=== PATIENT | male | born 1980 | race Caucasian/White ===

== ENCOUNTER 2017-03-18 08:49 | Inpatient (IN) | payer OTHER, MEDICAID ==
[2017-03-18] MEDS: DEXAMETHASONE 10 MG/ML 1 ML INJ IM (13:21)
[2017-03-18] MEDS: ALBUTEROL 0.083% (NEB) 2.5 MG/3 ML AMP HHN ×3 (13:24→23:46)
[2017-03-18] MEDS: IPRATROPIUM (NEB) 0.5 MG/2.5 ML AMP HHN (13:25)
[2017-03-18] MEDS: PENICILLIN G BENZ 1.2 MIL UNIT SYG IM (16:07)
[2017-03-18 19:08] LABS: ADD MAN DIFF? NO
[2017-03-18 19:09] LABS: BASOPHILS % 0.4 % (0.0-2.0); HEMATOCRIT 45.8 % (42.0-52.0); HEMOGLOBIN 15.4 g/dl (14.0-18.0); LYMPHOCYTES # 0.8 10^3/ul (0.8-2.9); LYMPHOCYTES % 7.8 % (15.0-51.0); MEAN CORPUSCULAR HEMOGLOBIN 28.4 pg (29.0-33.0); MEAN CORPUSCULAR HGB CONC 33.6 g/dl (32.0-37.0); MEAN CORPUSCULAR VOLUME 84.5 fl (82.0-101.0); MEAN PLATELET VOLUME 10.5 fl (7.4-10.4); MONOCYTE # 0.1 10^3/ul (0.3-0.9); MONOCYTES % 0.5 % (0.0-11.0); NEUTROPHIL # 9.3 10^3/ul (1.6-7.5); PLATELET COUNT 324 10^3/UL (140-415); RED BLOOD COUNT 5.42 10^6/ul (4.70-6.10); RED CELL DISTRIBUTION WIDTH 12.7 % (11.5-14.5)
[2017-03-18 19:09] LABS: WHITE BLOOD COUNT 10.2 10^3/ul (4.8-10.8)
[2017-03-18 19:23] LABS: AADO2 Arterial 59.2 mmHg (7.0-24.0); Allen Test ACCEPTAB; Arterial Base Excess -0.8 mmol/L (-3.0-3); Arterial Blood Gas Oxygen Sat 85.3 mmHG (95.0-98.0); Arterial COHb 0.4 % (0.0-3.0); Arterial Fraction of Oxyhgb 84.7 % (93.0-99.0); Arterial HCO3 22.6 mmol/L (22.0-26.0); Arterial MetHb 0.3 % (0.0-1.5); Arterial Total Hemglobin 16.3 g/dl (12.0-18.0); Arterial pCO2 34.2 mmhg (35-45); MODE ROOM AIR; Site Right Radial
[2017-03-18] MEDS: ALBUTEROL 0.5% (NEB) 2.5 MG/0.5 ML AMP INH (19:31)
[2017-03-18 19:34] LABS: ALANINE AMINOTRANSFERASE 82 IU/L (13-69); ALBUMIN 4.9 g/dl (3.3-4.9); ALBUMIN/GLOBULIN RATIO 1.36; ALKALINE PHOSPHATASE 130 IU/L (42-121); ANION GAP 22 (8-16); ASPARTATE AMINO TRANSFERASE 42 IU/L (15-46); BILIRUBIN,INDIRECT 0.1 mg/dl (0-1.1); BILIRUBIN,TOTAL 0.1 mg/dl (0.2-1.3); BLOOD UREA NITROGEN 15 mg/dl (7-20); CALCIUM 9.7 mg/dl (8.4-10.2); CARBON DIOXIDE 24 mmol/L (21-31); CHLORIDE 100 mmol/L (97-110); CREATININE 0.78 mg/dl (0.61-1.24); GLUCOSE 226 mg/dl (70-220); POTASSIUM 3.7 mmol/L (3.5-5.1); SODIUM 142 mmol/L (135-144); TOTAL PROTEIN 8.5 g/dl (6.1-8.1)
[2017-03-18] MEDS ORDERED: ACETAMINOPHEN 325 MG TAB PO ×2 (20:30→21:00)
[2017-03-18] MEDS ORDERED: ONDANSETRON 4 MG INJ IV (20:30)
[2017-03-18] MEDS: SOD CHLORIDE 0.9% 100 ML (20:42)
[2017-03-18] MEDS: IOHEXOL 100 ML (20:42)
[2017-03-18] MEDS ORDERED: ONDANSETRON 4 MG TAB PO (21:00)
[2017-03-18] MEDS ORDERED: BISACODYL (EC) 5 MG TAB PO (21:00)
[2017-03-18] MEDS ORDERED: NACL 0.9% 3 ML SYG IV (21:00)
[2017-03-18 21:31] LABS: D-DIMER 244.97 ng/ml (<460)
[2017-03-18] MEDS: predniSONE 20 MG TAB PO (22:16)
[2017-03-18] MEDS ORDERED: IBUPROFEN 600 MG TAB PO (22:30)
[2017-03-19] MEDS: ALBUTEROL 0.083% (NEB) 2.5 MG/3 ML AMP HHN ×6 (00:35→22:01)
[2017-03-19] MEDS: IPRATROPIUM (NEB) 0.5 MG/2.5 ML AMP HHN (04:06)
[2017-03-19] MEDS: PANTOPRAZOLE (EC) 40 MG TAB PO (06:01)
[2017-03-19] MEDS: DOCUSATE SODIUM 100 MG CAP PO (07:48)
[2017-03-19 08:23] LABS: ADD MAN DIFF? NO
[2017-03-19 08:26] LABS: WHITE BLOOD COUNT 9.1 10^3/ul (4.8-10.8)
[2017-03-19 08:26] LABS: BASOPHILS % 0.1 % (0.0-2.0); HEMATOCRIT 40.2 % (42.0-52.0); HEMOGLOBIN 13.6 g/dl (14.0-18.0); LYMPHOCYTES # 1.2 10^3/ul (0.8-2.9); LYMPHOCYTES % 12.8 % (15.0-51.0); MEAN CORPUSCULAR HEMOGLOBIN 28.3 pg (29.0-33.0); MEAN CORPUSCULAR HGB CONC 33.8 g/dl (32.0-37.0); MEAN CORPUSCULAR VOLUME 83.8 fl (82.0-101.0); MEAN PLATELET VOLUME 10.6 fl (7.4-10.4); MONOCYTE # 0.4 10^3/ul (0.3-0.9); MONOCYTES % 4.1 % (0.0-11.0); NEUTROPHIL # 7.5 10^3/ul (1.6-7.5); NEUTROPHILS % 82.6 % (39.0-77.0); PLATELET COUNT 290 10^3/UL (140-415); RED CELL DISTRIBUTION WIDTH 12.8 % (11.5-14.5)
[2017-03-19] MEDS: LEVOFLOXACIN 750MG/D5W (PMX) 150 ML IVPB (08:32)
[2017-03-19] MEDS: predniSONE 20 MG TAB PO (08:34)
[2017-03-19 08:48] LABS: ALANINE AMINOTRANSFERASE 69 IU/L (13-69); ALBUMIN 4.1 g/dl (3.3-4.9); ALBUMIN/GLOBULIN RATIO 1.17; ALKALINE PHOSPHATASE 107 IU/L (42-121); ANION GAP 14 (8-16); ASPARTATE AMINO TRANSFERASE 25 IU/L (15-46); BILIRUBIN,INDIRECT 0.1 mg/dl (0-1.1); BILIRUBIN,TOTAL 0.1 mg/dl (0.2-1.3); BLOOD UREA NITROGEN 16 mg/dl (7-20); CALCIUM 9.3 mg/dl (8.4-10.2); CARBON DIOXIDE 25 mmol/L (21-31); CHLORIDE 103 mmol/L (97-110); CHOL/HDL RATIO 3.9 RATIO; CHOLESTEROL 154 mg/dl (100-200); CREATININE 0.66 mg/dl (0.61-1.24); GLUCOSE 160 mg/dl (70-220); HDL CHOLESTEROL 39 mg/dl (28-63); LDL CHOLESTEROL,CALCULATED 106 mg/dl; MAGNESIUM 1.9 mg/dl (1.7-2.5); POTASSIUM 3.9 mmol/L (3.5-5.1); SODIUM 138 mmol/L (135-144); TOTAL PROTEIN 7.6 g/dl (6.1-8.1); TRIGLYCERIDES 46 mg/dl (0-149)
[2017-03-19 09:05] LABS: HEMOGLOBIN A1C 6.1 % (0-5.9)
[2017-03-19 09:22] LABS: THYROID STIMULATING HORMONE 0.568 MIU/L (0.465-4.680)
[2017-03-19] MEDS: PHENOL 1.4% SOLN 180 ML BTL MT (14:01)
[2017-03-20] MEDS: ALBUTEROL 0.083% (NEB) 2.5 MG/3 ML AMP HHN ×4 (00:31→12:30)
[2017-03-20] MEDS: PANTOPRAZOLE (EC) 40 MG TAB PO (05:28)
[2017-03-20] MEDS: PHENOL 1.4% SOLN 180 ML BTL MT (05:28)
[2017-03-20] MEDS: predniSONE 20 MG TAB PO (09:25)
[2017-03-20] MEDS: LEVOFLOXACIN 750MG/D5W (PMX) 150 ML IVPB (09:26)
[2017-03-20] MEDS: INFLUENZA VIRUS VACCINE 0.5 ML (DISPENSING) IM* (09:42)
== END 2017-03-20 14:24 | disposition home or self-care (01) | DRG 192 ==
LOC: E/R 08:49 → TEL 20:22
DX: J44.1 Chronic obstructive pulmonary disease with (acute) exacerbation (principal); J02.0 Streptococcal pharyngitis; J06.9 Acute upper respiratory infection, unspecified; E66.3 Overweight; Z68.29 Body mass index [BMI] 29.0-29.9, adult
CPT/HCPCS: 36600; 71045; 71275; 76705; 80053; 80061; 82803; 83036; 83735; 84443; 85025; 85378; 87880; 90686; 93005; 94640; 94644; 94664; 96372; 99285-25

== ENCOUNTER 2017-03-26 14:27 | Outpatient (CLI) | payer OTHER | END 2017-03-26 15:53 | disposition home or self-care (01) | LOC: DCC 14:27 | DX: J45.901 Unspecified asthma with (acute) exacerbation (principal); R73.9 Hyperglycemia, unspecified; J44.9 Chronic obstructive pulmonary disease, unspecified; E66.9 Obesity, unspecified | CPT/HCPCS: G0463 ==

== ENCOUNTER 2018-10-13 16:56 | Emergency (ER) | payer MEDICAID, OTHER ==
[2018-10-13] MEDS: KETOROLAC 30 MG INJ IM (17:39)
== END 2018-10-13 18:27 | disposition home or self-care (01) ==
LOC: FTE 16:56
DX: J18.9 Pneumonia, unspecified organism (principal)
CPT/HCPCS: 71045; 93005; 96372; 99284-25